=== PATIENT | female | born 1985 | race Caucasian/White ===

== ENCOUNTER 2017-11-10 09:20 | Day surgery (SDC) | payer OTHER ==
[~2017-11-10] VITALS: Ht 162.6 cm; Wt 57.5 kg
[2017-11-10 09:58] VITALS: BP 117/82
[2017-11-10] MEDS ORDERED: no medications (10:03)
[2017-11-10] MEDS ORDERED: METHYLERGONOVINE 0.2 MG/ML IM ONE (10:11)
[2017-11-10] MEDS ORDERED: OXYTOCIN 10 UNITS/ML, 1ML ONE (10:11)
[2017-11-10] MEDS ORDERED: SILVER NITRATE STICK TP ONE (10:11)
[2017-11-10] MEDS ORDERED: MISOPROSTOL 200 MCG TABLET ONE (10:11)
[2017-11-10 10:16] VITALS: BP 117/82
[2017-11-10] MEDS ORDERED: LACTATED RINGERS 1,000 ML IV SCH (10:24)
[2017-11-10] MEDS ORDERED: DEXAMETHASONE 4 MG/ML, 5ML ONE (11:26)
[2017-11-10] MEDS ORDERED: LIDOCAINE-MPF 2% ,5ML ONE (11:26)
[2017-11-10] MEDS ORDERED: ONDANSETRON 2MG/ML, 2ML ONE (11:26)
[2017-11-10] MEDS ORDERED: CEFAZOLIN 1,000 MG ONE (11:26)
[2017-11-10] MEDS ORDERED: PROPOFOL 10 MG/ML, 20ML ONE (11:26)
[2017-11-10] MEDS ORDERED: FENTANYL PF 100 MCG/2ML ONE (11:32)
[2017-11-10] MEDS ORDERED: ONDANSETRON 2MG/ML, 2ML IV PRN (12:00)
[2017-11-10] MEDS ORDERED: FENTANYL PF 100 MCG/2ML IV PRN (12:00)
[2017-11-10] MEDS ORDERED: MEPERIDINE/PF 25MG/0.5ML IVPush PRN (12:00)
[2017-11-10] MEDS ORDERED: ONDANSETRON ODT 8 MG PO PRN (12:00)
[2017-11-10] MEDS ORDERED: PROMETHAZINE 25 MG/ML, 1ML IV PRN (12:00)
[2017-11-10] MEDS ORDERED: PROMETHAZINE 25 MG SUPP PR PRN (12:00)
[2017-11-10] MEDS ORDERED: OXYcodone 5 MG/5 ML ORAL.SOL UDC PO PRN (12:00)
[2017-11-10] MEDS ORDERED: LORazepam 2 MG/ML, 1ML IVPush PRN (12:00)
[2017-11-10] MEDS ORDERED: MORPHINE SULFATE 4 MG/ML, 1ML IVPush PRN (12:00)
[2017-11-10] MEDS ORDERED: ACETAMINOPHEN 325 MG TABLET PO PRN (12:00)
[2017-11-10] MEDS ORDERED: MIDAZOLAM 1 MG/ML, 2ML ONE (12:05)
[2017-11-10] MEDS ORDERED: ACETAMINOPHEN 650 MG/20.3 ML UDC ONE (12:42)
== END 2017-11-10 15:05 | disposition home or self-care (01) ==
LOC: OUT 09:20
PROVIDERS: ATTEND Obstetrics & Gynecology
DX: O02.1 Missed abortion (principal); Z3A.01 Less than 8 weeks gestation of pregnancy
CPT/HCPCS: 36415; 59820; 86850; 86900; 88305; J0690; J1100; J2250; J2405; J2590; J2704; J2790; J3010; J3490; J7120; J2210

== ENCOUNTER → 2017-11-20 | Outpatient (CLI) | payer OTHER ==
[~2017-11-20] MED LIST: no medications
== END | disposition home or self-care (01) ==
LOC: LAB 10:45
PROVIDERS: ATTEND Obstetrics & Gynecology
DX: O00.109 Unspecified tubal pregnancy without intrauterine pregnancy (principal)
CPT/HCPCS: 36415; 84702